=== PATIENT | male | born 1970 | race Caucasian/White ===

== ENCOUNTER 2020-10-07 08:02 | Emergency (ER) | payer SELFPAY ==
[~2020-10-07] VITALS: Ht 200.7 cm; Wt 111.1 kg
[~2020-10-07 08:02] MED LIST: AMPDEX10 PO; Bactrim Ds Tab1 EACH PO; CEPH500 PO; HYDACE5 PO; NAPR500 PO; OXYACE5T PO; PROM25 PO; SULTRIDS PO; Zithromax250 MG PO; Zofran4 MG PO
[2020-10-07] MEDS ORDERED: CEPH500 PO (09:29)
[2020-10-07] MEDS ORDERED: Bactrim Ds Tab1 EACH PO (09:29)
== END 2020-10-07 09:46 | disposition home or self-care (01) ==
LOC: ER 08:02
DX: L02.512 Cutaneous abscess of left hand (principal); S60.463A Insect bite (nonvenomous) of left middle finger, initial encounter; Z23 Encounter for immunization; W57.XXXA Bitten or stung by nonvenomous insect and other nonvenomous arthropods, initial encounter
CPT/HCPCS: 10061; 73120; 90471; 90714; 99283-25; A9270